=== PATIENT | male | born 1960 | race Caucasian/White ===

== ENCOUNTER 2022-07-04 08:30 | Outpatient (RCR) | payer OTHER, SELFPAY ==
[2022-04-26 11:34] VITALS: PULSE 78
[2022-04-26 12:02] VITALS: PULSE 78
== END 2022-07-30 10:38 | disposition home or self-care (01) ==
LOC: ANHCPREHAB 08:30
PROVIDERS: PCP Internal Medicine; Visit Provider Internal Medicine Cardiovascular Disease
DX: Z95.1 Presence of aortocoronary bypass graft (principal)
CPT/HCPCS: 93798